=== PATIENT | female | born 1990 | race Caucasian/White ===

== ENCOUNTER 2017-04-10 16:11 | Emergency (ER) | payer OTHER ==
--- NOTE | 2017-04-10 16:28 | PDOC ---
Chest Pain HPI - General Chief Complaint: Chest Pain Stated Complaint: PAIN LEFT SIDE OF CHEST WITH BREATHING Date Seen by Provider: 04/10/17 Time Seen by Provider: 16:28 Source: Patient Exam Limitations: POSITIVE: No limitations Treatment Prior to Arrival: REPORTS: None Nurse's Notes Reviewed & Considered: Yes - History of Present Illness Initial Comments: Patient is a 27-year-old female who presents to the emergency department for evaluation of left-sided chest pain. Patient reports this started approximately 24 hours prior. It was spontaneous in onset. Left side of the chest. There is no radiation. It is worse with breathing and taking deep breaths. Sharp and achy in nature. Patient denies any recent illnesses, fevers , coughing. No pain or swelling in her lower extremities. Patient has no history of prior DVT. Patient currently is using NuvaRing control. - Patient Home Medications Home Medications: Home Medications Temazepam 15 mg PO DAILY cap 01/02/17 Etonogestrel/Ethinyl Estradiol [Nuvaring Vaginal Ring] 1 each VAGINAL MONTHLY # 3 vag ring 01/23/17 Lorazepam 0.5 mg PO Q6H PRN PRN 04/10/17 - Patient Allergies Allergies/Adverse Reactions: Allergies Allergy/AdvReac Type Severity Reaction Status Date / Time No Known Allergies Allergy Verified 04/10/17 16:38 Past Medical History - heen HEENT History: Denies History Cardiovascular History: Denies History Respiratory History: Denies History Gastrointestinal History: Denies History Genitourinary History: Denies History Endocrine History: Denies History Musculoskeletal History: Denies History Neurological History: Denies History Blood Disorders: Denies History Psychiatric History: Denies History Cancer History: Denies History Substance Use Type: None Significant Family History: No pertinent family hx Past Medical History Reviewed: Reviewed - Changes Made ROS - Limitations ROS Limitations: No Limitations Constitution: REPORTS: Denies Symptoms Cardiovascular: REPORTS: Chest Pain Respiratory: REPORTS: Hurts To Breathe Neurological: REPORTS: Denies Neuro Symptoms Gastrointestinal: REPORTS: Denies GI Symptoms Endocrine: REPORTS: Denies Symptoms Musculoskeletal: REPORTS: Denies MS Symptoms Genitourinary: REPORTS: Denies Symptoms Eyes: REPORTS: Denies Symptoms ENT: REPORTS: Denies Symptoms Skin: REPORTS: Denies Skin Symptoms Lympathic: REPORTS: Denies Lympathic Symptoms Immunologic: POSITIVE: Denies Symptoms Psychiatric: POSITIVE: Denies Psych Symptoms Chest Pain PE - General Appearance General Appearance: REPORTS: Alert, Cooperative, No Acute Distress, No Evidence of Trauma - HEENT HEENT: POSITIVE: Head Inspection Nml, Eyes Inspection Nml, Ears Inspection Nml, Nose Inspection Nml, EOMI - Neck Neck: REPORTS: Normal Inspection - Respiratory Respiratory: REPORTS: No Respiratory Distress, Breath Sounds Normal, Chest Non- Tender. DENIES: Wheezes, Rales - Cardiovascular Cardiovascular: REPORTS: Regular Rate and Rhythm, Heart Sounds Normal, Equal Pulses, No Murmur, No Gallop, No Friction Rub - Abdomen Abdomen: Soft: (All Quadrants) Additional Abdominal Details: There is slight tenderness to palpation in the left upper quadrant without rebound or guarding. Normal bowel sounds. - Skin Skin: REPORTS: Intact, Warm, Dry - Extremities Extremity: Non-Tender: (All Extremities), Normal ROM: (All Extremities) - Neurological / Psychological Neurological: POSITIVE: Affect Apporpriate Chest Pain Progress - Results Reviewed by me Lab Results:: Laboratory Results 04/10/17 Range/Units 16:20 WBC 7.91 (4.8-10.8) 10^3/uL RBC 4.54 (4.20-5.40) 10^6/uL Hgb 13.5 (12.0-16.0) g/dL Hct 40.1 (37.0-47.0) % MCV 88.3 (81-99) FL MCH 29.7 (27-31) PG MCHC 33.7 (33-37) g/dL RDW Std Deviation 40.8 (39-50) fL RDW Coeff of Enrrique 12.8 (11.5-14.5) % Plt Count 191 (140-350) 10*3/uL MPV 10.4 (7.4-12.2) FL Immature Gran % (Auto) 0.1 (0-5) % Neut % (Auto) 49.8 L (50-80) % Lymph % (Auto) 43.4 (10-50) % [place] % (Auto) 5.4 (5-15) % Eos % (Auto) 1.0 (0-8) % Baso % (Auto) 0.3 (0-1) % Immature Gran # (Auto) 0.01 10*3/UL Neut # (Auto) 3.94 10*3/UL Lymph # (Auto) 3.43 10*3/uL [place] # (Auto) 0.43 (0.3-0.8) 10*3/UL Eos # (Auto) 0.08 10*3/UL Baso # (Auto) 0.02 10*3/UL WBC Morphology Comment Normal morphology (NORM) Plt Morphology Comment Normal morphology (NORM) RBC Morph Comment Normal morphology (NORM) PT 9.7 (9.7-11.4) secs INR 0.92 (0.00-5.90) N/A D-Dimer 0.19 (0.00-0.59) mg/L Sodium 136 (135-145) meq/L Potassium 3.6 L (3.8-5.2) meq/L Chloride 105 (98-112) meq/L Carbon Dioxide 20 L (23-33) meq/L Anion Gap 11 (5-20) BUN 16 (7-22) mg/dL Creatinine 0.7 (0.50-1.20) mg/dL Estimated GFR > 60 (>60 ml/min/1.73m(2)) BUN/Creatinine Ratio 22.85 H (6-20) Glucose 83 (78-110) mg/dL Calculated Osmolality 281.0 (267-292) mOsm/kg Calcium 8.7 (8.7-10.7) mg/dL Troponin I < 0.012 (< 0.040) ng/mL Serum HCG, Qual Negative - Patient's Progress MDM / ED Course: Angelica is a 27-year-old female who presents to the emergency department for evaluation of chest pain. Her vital signs are unremarkable and examination demonstrates well-appearing female in no acute distress. Differential diagnosis includes but is not limited to ACS, pleurisy, costochondritis, pneumothorax, pulmonary embolism. EKG demonstrates sinus rhythm without evidence of acute ST changes. Patient's troponin is negative. Combined with normal EKG making cardiac or ACS causes less likely. Patient's d-dimer is negative making pulmonary embolism unlikely. Patient had a chest x-ray which demonstrates no evidence of acute cardiothoracic abnormalities. Given negative evaluation with reassuring laboratory studies other than mild hypokalemia this may be pleurisy. She was treated with Toradol 15 mg IV here with good improvement and discharged in stable condition. Patient Care Time - Estimated PCT Patient Care Time (In Minutes): 30 Vital Signs - Recent Vital Signs Vital Signs: Vital Signs (Last 8 hours) Temp Pulse Pulse Resp BP Pulse Ox 04/10/17 16:21 99.2 F 103 H 103 H 18 162/94 97 - VS Reviewed Vital Signs Reviewed: Yes Discharge Clinical Impression: Atypical chest pain Discharge Disposition: Discharged to Home Condition: Good Patient Instructions Given at Discharge: Noncardiac Chest Pain (ED) Additional Instructions: Thank you for coming to the Emergency Department. You testing showed slightly low potassium. Please take a multivitamin. Use ibuprofen or Aleve to help with pain. Please recheck with your primary care provider in 1-2 days. Please return to the Emergency Department for any worsening symptoms. Follow Up With: DANISH RUIZ [Primary Care Provider] -
[2017-04-10 16:33] LABS: BASOPHILS # (AUTO) 0.02 10*3/UL; BASOPHILS % (AUTO) 0.3 % (0-1); EOSINOPHILS # (AUTO) 0.08 10*3/UL; HEMATOCRIT 40.1 % (37.0-47.0); HEMOGLOBIN 13.5 g/dL (12.0-16.0); LYMPHOCYTES # (AUTO) 3.43 10*3/uL; MEAN CORPUSCULAR HEMOGLOBIN 29.7 PG (27-31); MEAN CORPUSCULAR HGB CONC 33.7 g/dL (33-37); MEAN CORPUSCULAR VOLUME 88.3 FL (81-99); MEAN PLATELET VOLUME 10.4 FL (7.4-12.2); MONOCYTES # (AUTO) 0.43 10*3/UL (0.3-0.8); MONOCYTES % (AUTO) 5.4 % (5-15); NEUTROPHILS # (AUTO) 3.94 10*3/UL; NEUTROPHILS % (AUTO) 49.8 % (50-80); RED BLOOD COUNT 4.54 10^6/uL (4.20-5.40)
[2017-04-10 16:34] LABS: PLATELET MORPHOLOGY COMMENT NORMAL MORPHOLOGY (NORM); RBC MORPHOLOGY COMMENT NORMAL MORPHOLOGY (NORM); WBC MORPHOLOGY COMMENT NORMAL MORPHOLOGY (NORM)
[2017-04-10 16:39] LABS: BLOOD UREA NITROGEN 16 mg/dL (7-22); BUN/CREATININE RATIO 22.85 (6-20); CALCIUM 8.7 mg/dL (8.7-10.7); EST GLOMERULAR FILTRATION > 60 (>60 ml/min/1.73m(2))
[2017-04-10] MEDS ORDERED: Sodium Chloride 0.9% 1,000 ML PRIMARY IV ONE (16:50)
[2017-04-10 17:14] VITALS: TEMP 99.2
--- NOTE | 2017-04-10 17:45 | DI ---
PA /LATERAL CHEST X-RAY, 04/10/2017 4:27 PM : Clinical History: Chest pain. Previous Exam: None at this facility. There is no acute soft tissue or bony abnormality. Heart size is normal. Lungs are clear. Mediastinal structures are normal. There are no pulmonary nodules. Reading: Normal chest x-ray.
[2017-04-10] MEDS ORDERED: KETOROLAC 15 MG/1 ML VIAL IVP ONE (17:59)
[2017-04-10 18:24] VITALS: RESP 16
--- NOTE | 2017-04-11 09:42 | EKG ---
[address] [address] Measurements Intervals [place] Rate: 77 P: 79 IA: 127 QRS: 81 QRSD: 96 T: 70 QT: 414 QTc: 445 Interpretive Statements SINUS RHYTHM ST DEPRESSION NONSPECIFIC ST CHANGES No previous ECG available for comparison Electronically Signed On 04-11-17 10:51:56 MDT by Polo Medina [email or web address]
== END 2017-04-10 18:20 | disposition home or self-care (01) ==
LOC: ER 16:11
DX: R07.89 Other chest pain (principal); E87.6 Hypokalemia
CPT/HCPCS: 71020; 80048; 84484; 84703; 85025; 85379; 85610; 93005; 93010; 96374; 99283; J1885; J7030